=== PATIENT | male | born 1995 | race Caucasian/White ===

== ENCOUNTER 2024-02-25 20:47 | Emergency (ER) | payer OTHER, SELFPAY ==
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
[2024-02-25 20:51] VITALS: BP 154/98; PULSE 78; RESP 18; TEMP 36.3; O2SAT 100
--- NOTE | 2024-02-25 21:00 | DI.RAD_ITS ---
Exam(s) XR TIB/FIB LT EXAM: XR TIB/FIB LT CLINICAL HISTORY: Left tibia laceration. TECHNIQUE: 2D digital imaging was performed of the left tibia and fibula. Three images were obtained . AP and lateral views were obtained. COMPARISON: No exams were available for comparison FINDINGS: BONES: No acute fracture is present. No bony destructive lesion is seen. Visualized portion of knee a nd ankle joints are unremarkable. SOFT TISSUE: There is a laceration in the anterior medial soft tissues of the inferior lower leg. No radiopaque foreign body is identified. IMPRESSION: There is a laceration in the anterior medial soft tissues of the inferior lower leg. No radiopaque f oreign body is seen. No acute fracture or dislocation. DATA REPOSITORY: RADIATION DOSE DELIVERED:
[2024-02-25] MEDS: Lidocaine/Epinephri/Tetracaine Topical Gel 3 ML TP (21:05)
[2024-02-25] MEDS: ceFAZolin 2 GM/50 ML BAG IVPB (21:19)
[2024-02-25] MEDS: ACETAMINOPHEN 1,000 MG/100 ML BTL 400 MG IVPB (21:19)
[2024-02-25] MEDS: Normal Saline 500 ML IV (21:20)
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
--- OUTSIDE RECORDS SUMMARY | 2024-02-25 21:56 | XMS_ITS | Encounter Summary ---
Author Organization [facility] lin Address [address] [place] [address] Care Team Providers Care Inventory Control Assistant Name Role Phone No, Pcp REGISTERED SALES ASSISTANT Primary Care Provider Unavailabl e Reason for Visit * Reason Comments Poc Onsite Covid19 Testing Encounter Details Date Type Department Care Team (Late st Contact Info) Description 09/01/2021 3:45 PM EST Office Visit [facility] [address] [facility] [address] Covid - 19 Testing Site [address] [place] [address] So [facility] NP [address] [place] [address] Contact with and (suspected) exposure to covid-19 (Primary Dx); Encounter for observation for suspected exposure to other biological agents ruled out Social History Tobacco Use Types Packs/Day Years Used Date Smoking Tobacco: Never Assessed Sex and Gender Information Value Date Recorded Sex Assigned at Not on file Gender Identity Not on file Sexual Orientation Not on file documented as of this encounter Functional Status Functional Status Response Date of Assess ment Is the person deaf or does h e/she have serious difficulty hearing? Is this person blind or does he/she have serious difficulty seeing even when wearing glasses? Does this person have seriou s difficulty walking or climbing stairs? Does this person have difficulty dressing or bat po? Because of a physical, menta l, or emotional condition, does this person have difficulty doing errands alone such as visiting a doctor's office or shopping? Cognitive Status Response Date of Assessm ent Because of a physical, menta l, or emotional condition, does this person have serious difficulty concentrating, remembering, or making decisions? documented as of this encounter Patient Instructions * Patient Instructions* Nikole Schuler RN - 09/01/2021 3:45 PM EST Patient was reached and results were delivered. Negative Test results You were seen for COVID-19 Testing and have tested negative. If you test negative for COVID-19, you probably were not infected at the time your specimen was collected. However, that does not mean you will not get sick. It is possible that you were very early in your infection at the time of your specimen collection and that you could test positive later, or you could be exposed later and then develop illness. Even with a negative test, it is important to stay home if sick and follow Department of Health recommendations. Managing your symptoms During this viral illness, rest and hydration are important in your recovery. You can take anti-fever medication as directed per your healthcare provider and package instructions. Prevent the spread of illness Separate yourself from other people in your home As much as possible, you should stay in a specificroom and away from other people in your home. Also, you should use a separate bathroom, if available. Call ahead before visiting your doctor If you have a medical appointment, call the healthcare provider and tell them that you have or may have COVID-19. This will help the healthcare provider???s office take steps to keep other people from getting infected or exposed. Wear a facemask You should wear a facemask, if possible, when you are around other people (e.g., sharing a room or vehicle) and before you enter a healthcare provider???s office. If you are not able to wear a facemask (for example, because it causes trouble breathing), then people who live with youshould not be in the same room with you, or they should wear a facemask if they enter your room. Cover your coughs and sneezes Cover your mouth and nose with a tissue when you cough or sneeze. Throw used tissues in a lined trash can; immediately clean your hands as described below. Clean your hands often Wash your hands often with soap and water for at least 20 seconds. If soap and water are not available, clean your hands with an alcohol- based hand painter barrel that contains at least 60% alcohol, covering all surfaces of your hands and rubbing them together until they feel dry.Soap and water is preferred if hands are visibly dirty. Avoid touching your eyes, nose, and mouth with unwashed hands. Avoid sharing personal household items You should not share dishes, drinking glasses, cups, eating utensils, towels, or bedding with other people or pets in your home. After using these items, they should be washed thoroughly with soap and water and dried before use by others. Clean all ???high-touch?? surfaces every day High touch surfaces include counters, tabletops, doorknobs, bathroom fixtures, toilets, phones, keyboards, tablets, and bedside tables. Also, clean any surfaces that may have blood, stool, or body fluids on them. Use a household cleaning spray or wipe, according to the label instructions. Labels contain instructions for safe and effective use of the cleaning product including precautions you should take when applying the product, such as wearing gloves and making sure you have good ventilation during use of the product. Follow up with Primary Care Physician as scheduled. [facility] COVID19 Fact Sheet You are being given this Fact Sheet because your sample(s) are being tested for the virus that causes Coronavirus Disease 2019 (COVID-19). This Fact Sheet contains information to help you understand the risks and benefits of using this test for the diagnosis of COVID-19. If you have questions or would like to discuss the information provided after you read this Fact Sheet, please talk to your healthcare provider. For the most up to date information on COVID-19 please visit the CDC Coronavirus Disease 2019 (COVID-19) webpage: https://www.cdc.gov/coronavirus/2019-ncov/index.html IMPORTANT INFORMATION REGARDING COVID19 TEST RESULTS: ??? Please wait for next steps in the parking lot or designated wait area after you submitted your sample ??? Ensure your phone is on as the provider will be calling you with next steps as you wait in the designated wait area. ??? The [facility] provider will be able to perform other diagnostic tests (e.g., rapid flu or rapid strep) at the on-site [facility] for a symptomatic patient with a negative COVID-19 test result and can help answer questions about how to best manage symptoms and quarantine for a patient with a positive COVID- 19 result. Know about COVID-19 COVID-19 is caused by the SARS-CoV-2 virus. COVID- 19 can cause mild to severe respiratory illness,was first identified in [facility], and has now spread globally, including in the [place]. There is limited information available about the spectrum of illness associated with COVID-19 but itlikely spreads to others when a person shows signs or symptoms of being sick (e.g., cough, shortness of breath or difficult breathing, fever, chills, repeated shaking with chills, muscle pain, headache, sore throat, new loss of taste or smell, other less common symptoms have been reported, including gastrointestinal symptoms like nausea, vomiting, or diarrhea.) What are the known and potential risks and benefits of the test? Potential risks include: ??? Possible discomfort or other complications that can happen during sample collection. (I.e. bloody nose during specimen collection) ??? It is possible that this test can give a positive result that is wrong (a false positive result). ??? It is possible for this test to give a negative result that is incorrect (false negative). Potential benefits include: ??? The results, along with other information, can help your healthcare provider make informed recommendations about your care. ??? The results of this test may help limit the spread of COVID-19 to your family and others in your community. ??? The results of this test may help limit the spread of COVID-19 to your family and others in your community. Potential benefits include: ??? The results, along with other information, can help your healthcare provider make informed recommendations about your care. ??? The results of this test may help limit the spread of COVID-19 to your family and others in your community. What does it mean if I have a positive test result? If you have a positive test result, it is very likely that you have COVID-19. Therefore, it is alsolikely that you may be placed in isolation to avoid spreading the virus to others. There is a very small chance that this test can give a positive result that is wrong (a false positive result). Most cases can be cared for at home. Stay home and limit contact with others until: You have been fever-free for at least 24 hours without using medicine that reduces fever AND your symptoms have improved AND at least 10 days have passed since your symptoms first appeared. ??? Do not go to the hospital to seek care unless you have a medical emergency ??? Do not go to work. Notify your employer of your positive test result ??? Contact your primary care provider and inform them of your positive COVID19 testing result ??? Continue to monitor your symptoms at home and seek medical attention if symptoms worsen as described on the opposite side of this document. If you test positive for COVID-19 but never had and never develop symptoms, you may discontinue isolation and other precautions 10 days after the date of your first positive test for COVID-19. What does it mean if I have a negative test result? A negative test result does not completely rule out being infected with COVID- 19. There is a chancethat this test can give a false result that is wrong (a false negative result). If you test negative for COVID-19, this means the virus was not detected at the time your specimen was collected. It is still possible that you were very early in your infection at the time of your specimen collection and that you could test positive later. Also, you could be exposed later and still develop the illness. For all these reasons, it is important to follow CDC guidance at (https://www.cdc.gov/coronavirus/2019-ncov/qzhfhxk-jvbxdys-bqsi/prevent ion.html), including but not limited to frequent hand washing, social distancing, wearing a face covering, covering coughs and sneezes, monitoring symptoms, and cleaning and disinfectant of frequently touched surfaces -- even after a negative test result. Is there a possibility that the test results could be ???invalid?? ? In the instance that your specimen is invalid, you may have to submit a second specimen. If that also is an invalid result, you will likely need send-out lab testing. Testing invalid today does not mean you do have COVID-19 or don???t have COVID-19. There are some reasons as to why you may have tested invalid. For example, a recent bloody nose, testing device errors, or not enough of a specimen sample could give an invalid result. How should I monitor my symptoms? Note the day any new symptoms begin ??? Check your own temperature two times a day ??? Keep a daily record of fever, cough and additional respiratory symptoms ??? Seek further evaluation from a healthcare provider via telemedicine, or thru a scheduled in person visit if applicable and your symptoms get worse. ??? Call ahead before visiting your healthcare provider and tell them you have been tested for COVID-19. ??? Even if you don???t experience symptoms you might make others sick What should I do if symptoms get worse? Wash your hands often with soap and water for at least 20 seconds. Clean your hands with an alcohol-based hand painter barrel that contains at least 60% alcohol if soap and water are not available. ??? Avoid close contact with people who are sick ??? Avoid touching your eyes, nose and mouth with unwashed hands. ??? Clean all ???high-touch?? surfaces every day. High touch surfaces include counters, tabletops,doorknobs, bathroom fixtures, toilets, phones, keyboards, tablets, and beside tables. ??? Cover coughs and sneezes ??? If available, wear a face covering What should I do if symptoms get worse? Seek medical attention immediately if you develop any of the following emergency warning signs for COVID-19 or other medical emergencies: ??? Difficulty breathing ??? Bluish lips or face ??? Constant pain or pressure in your chest ??? Constant dizziness or lightheadedness ??? Acting confused ??? Difficulty waking up ??? Slurred speech (new or worsening) ??? New seizure or seizures that won???t stop This list is not all-inclusive. Please consult a healthcare provider for any other symptoms that are severe or concerning. What should I do to protect myself? Wash your hands often with soap and water for at least 20 seconds. Clean your hands with an alcohol-based hand painter barrel that contains at least 60% alcohol if soap and water are not available. ??? Avoid close contact with people who are sick ??? Avoid touching your eyes, nose and mouth with unwashed hands. ??? Clean all ???high-touch?? surfaces every day. High touch surfaces include counters, tabletops,doorknobs, bathroom fixtures, toilets, phones, keyboards, tablets, and beside tables. ??? Cover coughs and sneezes ??? If available, wear a face covering When will I receive my test results? [facility] allows you to view your test results, your medical records and more. You will receive a [facility] activation email at the conclusion of your COVID19 visit. Upon receipt, you will need to createa user name and password by inputting basic patient demographics including date of and a response to a security question. If you have any questions and/or concerns regarding the [employer] process, you may email [email or web address] Our Notice of Privacy Practices can be found here: [email or web address] If you have any questions, please contact us at . Where can I go for updates and more information? The most up-to-date information on is available at the CDC General webpage: https://www.cdc.gov/COVID19 In addition, please also contact your healthcare provider with any questions/concerns. CDC Information Updated: December 13, 2019 documented in this encounter Progress Notes * Nikole Schuler RN - 09/01/2021 3:45 PM EST [facility] Department of Health notified of results per regulations documented in this encounter Plan of Treatment Not on file documented as of this encounter Procedures Procedure Name Priority Date/Time Associated Diagnosis Comments LUMIRADX SARS-COV-2 RAPID RESULT ANTIGEN TEST Routine 09/01/2021 3:42 PM EST Contact with and (suspected) exposure to covid-19 documented in this encounter Results * LumiraDX SARS-COV-2 Rapid Result Antigen Test (09/01/2021 3:42 PM EST) LumiraDX SARS-COV-2 Rapid Result Antigen Test Negative Negative, Invalid invino [id number] INTERNAL CONTROLS VALID Yes--Test working appropriately invino [id number] Expiration Date 11/04/2021 invino [id number] Lot Number [id number] [facility] [id number] Test Brand Name_Covid-19 Lumiradx Sars-Cov-2 AG Test [facility] [id number] Other 09/01/2021 3:42 PM EST So [facility] REGISTERED SALES ASSISTANT POINT OF CARE [facility] ORDERABLES [facility] [id number] [address] [place] [address], documented in this encounter Visit Diagnoses Diagnosis Contact with and (suspected) exposure to covid-19- Primary Encounter for observation for suspected exposure to other biological agents ruled out documented in this encounter Care Teams Inventory Control Assistant Relationship Specialty Start Date End Date No, Pcp, REGISTERED SALES ASSISTANT N/A Do not use PCP - General Family Medicine 08/06/20 documented as of this encounter
--- OUTSIDE RECORDS SUMMARY | 2024-02-25 21:56 | XMS_ITS | Referral Summary ---
Author Organization [facility] Address [address] [place] [address] Care Team Providers Care [employer] Repairer Name Role Phone Steven Fernandez MD Primary Care Provider [phone]- [phone] Allergies Active Allergy Reactions Criticality Noted Date Comments Penicillins 01/05/2015 Social History Tobacco Use Types Packs/Day Years Used Date Smoking Tobacco: Never Assessed Sex and Gender Information Value Date Recorded Sex Assigned at Not on file Gender Identity Not on file Sexual Orientation Not on file Last Filed Vital Signs Vital Sign Reading Time Taken Comments Blood Pressure 142/83 01/05/2015 1:46 AM EDT Pulse 98 01/05/2015 1:46 AM EDT Temperature 36.3 ??C (97.3 ??F) 01/05/2015 1:46 AM ED T Respiratory Rate 22 01/05/2015 1:46 AM EDT Oxygen Saturation 98% 01/05/2015 1:46 AM EDT Inhaled Oxygen Concentration 98% 01/05/2015 1 :46 AM EDT Weight 70.3 kg (155 lb) 01/05/2015 1:46 AM EDT Height 180.3 cm (5' 11) 01/05/2015 1:46 AM EDT Body Mass Index 21.62 01/05/2015 1:46 AM EDT Functional Status Functional Status Response Date of Assessment Stat us Are you deaf or do you have serious difficulty hearing? No 01/05/2015 Active Are you blind or do you have serious difficulty seeing, even when wearing glasses? No 01/05/2015 Activ e Do you have serious difficul ty walking or climbing stairs? (5 years old or older) No 01/05/2015 Active Do you have difficulty dress ing or bathing? (5 years old or older) No 01/05/2015 Active Because of a physical, menta l, or emotional condition, do you have difficulty doing errands alone such as visiting a doctor's office or shopping? (15 years old or older) No 01/05/2015 Active Cognitive Status Response Date of Assessment Statu s Because of a physical, menta l, or emotional condition, do you have serious difficulty concentrating, remembering, or making decisions? (5 years old or older) No 01/05/2015 Active Plan of Treatment Not on file Insurance Payer Benefit Plan / Group Subscriber ID Effective Dates Phone Address Type AETNA AETNA O [id number] 2010-Present [address] [place] [address] HMO Care Teams [employer] Se[employer] Relationship Specialty Start Date End Date Steven Fernandez MD [address] [place] [id number] PCP - General 01/05/15
--- OUTSIDE RECORDS SUMMARY | 2024-02-25 21:56 | XMS_ITS | Encounter Summary ---
Author Organization [facility] Address [address] [place] [address] Care Team Providers Care Office Support Associate Name Role Phone Steven Fernandez MD Primary Care Provider [phone] Reason for Visit * Reason Comments Chin Laceration Encounter Details Date Type Department Care Team (Late st Contact Info) Description 01/05/2015 1:54 AM EDT - 01/05/2015 2:45 AM EDT Emergency [facility] Emergency Department [address] [place] [id number] Laine Majano MD [address] [place] [id number] Discharge Disposition: Home or Self Care Social History Tobacco Use Types Packs/Day Years Used Date Smoking Tobacco: Never Assessed Sex and Gender Information Value Date Recorded Sex Assigned at Not on file Gender Identity Not on file Sexual Orientation Not on file documented as of this encounter Last Filed Vital Signs Vital Sign Reading [...] Mass Index 21.62 01/05/2015 1:46 AM EDT documented in this encounter Functional Status Functional Status Response [...] years old or older) No 01/05/2015 Active documented as of this encounter Discharge Instructions * Discharge Instructions* Christina Cohen MD - 01/05/2015 2:30 AM EDT Images from the original note were not included. Cuts on the Face Closed With Stitches: After Your Visit Your Care Instructions A cut on your face can be on your chin, cheek, nose, forehead, eyelid, lip, or ear. The doctor used stitches to close the cut. Using stitches helps the cut heal and reduces scarring. The doctor may also have called in a specialist, such as a plastic surgeon, to close the cut. If the cut went deep and through the skin, the doctor may have put in two layers of stitches. The deeper layer brings the deep part of the cut together. These stitches will dissolve and don't need regino removed. The stitches in the upper layer are the ones you see on the cut. You will probably have a bandage. You will need to have the stitches removed, usually in 3 to 5 days. The doctor has checked you carefully, but problems can develop later. If you notice any problems ornew symptoms, get medical treatment right away. Follow-up care is a serrano part of your treatment and safety. Be sure to make and go to all appointments, and call your doctor if you are having problems. It's also a good idea to know your test resultsand keep a list of the medicines you take. How can you care for yourself at home? ?? Keep the cut dry for the first 24 to 48 hours. After this, you can shower if your doctor okays it. Pat the cut dry. ?? Don't soak the cut, such as in a bathtub. Your doctor will tell you when it's safe to get the cut wet. ?? After the first 24 to 48 hours, clean the cut with soap and water 2 times a day unless your doctor gives you different instructions. ?? Don't use hydrogen peroxide or alcohol, which can slow healing. ?? You may cover the cut with a thin layer of antibiotic ointment, such as bacitracin, and a nonstick bandage. ?? Put on a new bandage after cleaning the cut or if the bandage gets wet or dirty. ?? Put ice or a cold pack on the area for 10 to 20 minutes at a time. Put a thin cloth between the ice and your skin. ?? Avoid any activity that could cause your cut to reopen. ?? Do not remove the stitches on your own. Your doctor will tell you when to come back to have the stitches removed. ?? Take pain medicines exactly as directed. ?? If the doctor gave you a prescription medicine for pain, take it as prescribed. ?? If you are not taking a prescription pain medicine, ask your doctor if you can take an [id number]-[id number] medicine. When should you call for help? Call your doctor now or seek immediate medical care if: ?? You have new pain, or your pain gets worse. ?? The skin near the cut is cold or pale or changes color. ?? You have tingling, weakness, or numbness near the cut. ?? The cut starts to bleed, and blood soaks through the bandage. Oozing small amounts of blood is normal. ?? You have symptoms of infection, such as: ?? Increased pain, swelling, warmth, or redness around the cut. ?? Red streaks leading from the cut. ?? Pus draining from the cut. ?? A fever. Watch closely for changes in your health, and be sure to contact your doctor if: ?? You do not get better as expected. Where can you learn more? Go to the ???Search [employer] Library?? box on [employer] https://[employer].org and enter Z635in the search box to learn more about Cuts on the Face Closed With Stitches: After Your Visit. Not on [employer]? Contact your Provider to receive your log in information. ?? [id number] [employer], [employer]. Care instructions adapted under license by [employer]. Thiscare instruction is for use with your licensed healthcare professional AND IS NOT A SUBSTITUTE FOR PROFESSIONAL MEDICAL ADVICE. If you have questions about a medical condition or this instruction, always ask your healthcare professional. [employer] disclaims any warranty or liability for your use of this information. Content Version: 10.0.910855; Last Revised: June 01, 2012 documented in this encounter ED Notes * Lyndsay Long RN - 01/05/2015 2:45 AM EDT Pt meets discharge criteria. Pt ambulatory with friend to waiting room and taxi called for ride home. Pt with no complaints or questions. * Laine Majano MD - 01/05/2015 1:56 AM EDTAssociated Order(s): LACERATION REPAIR History Chief Complaint Patient presents with ??? Chin Laceration Chief Complaint: Chin laceration I saw this patient with the resident physician Dr. Cohen. I have seen and examined the patient myself and am responsible for the care plan. HPI This is a 20 y.o. male who presents with a chin laceration. Patient was celebrating birthday, +[place]OH. States that he fell down 2 stairs and landed on his chin. Denies LOC, remembers all of the events clearly. Patient states that he was bleeding from the area, came into [facility] for further management. Patient complains of minimal discomfort in the jaw. He denies headache or change in vision. No chest pain, SOB, N/V, abdominal pain. No injury to the extremities. No numbness or weakness in the arms or legs. Patient is otherwise healthy. Not taking any medications. Patient denies significant complaints of pain History reviewed. No pertinent past medical history. History reviewed. No pertinent past surgical history. No family history on file. History Substance Use Topics ??? Smoking status: None ??? Smokeless tobacco: None ??? Alcohol Use: None Review of Systems Constitutional: Negative for fever, chills, diaphoresis and fatigue. HENT: Negative for congestion. Eyes: Negative for pain and visual disturbance. Respiratory: Negative for cough, shortness of breath and wheezing. Cardiovascular: Negative for chest pain and palpitations. Gastrointestinal: Negative for nausea, vomiting, abdominal pain, diarrhea, constipation and abdominal distention. Genitourinary: Negative for dysuria and flank pain. Musculoskeletal: Negative for back pain, neck pain and neck stiffness. Skin: Positive for wound. Negative for pallor and rash. Neurological: Negative for dizziness, syncope, weakness, light-headedness, numbness and headaches. Psychiatric/Behavioral: Negative for confusion. Physical Exam BP 142/83 Pulse 98 Temp 36.3 ??C (97.3 ??F) (Tympanic) Resp 22 Ht 1.803 m (5' 11) Wt 70.308 kg (155 lb) BMI 21.63 kg/m2 SpO2 98% Physical Exam Constitutional: He is oriented to person, place, and time. No distress. HENT: Head: Normocephalic and atraumatic. Mouth/Throat: Oropharynx is clear and moist. No oropharyngeal exudate. Eyes: EOM are normal. Pupils are equal, round, and reactive to light. Right eye exhibits no discharge. Left eye exhibits no discharge. Neck: Normal range of motion. Neck supple. Cardiovascular: Normal rate, regular rhythm, normal heart sounds and intact distal pulses. No murmur heard. Pulmonary/Chest: Effort normal and breath sounds normal. No respiratory distress. He has no wheezes. Abdominal: Soft. Bowel sounds are normal. He exhibits no distension. There is no tenderness. Musculoskeletal: Normal range of motion. He exhibits no tenderness. The patient had no midline cervical, thoracic, lumbar tenderness to palpation. Neurological: He is alert and oriented to person, place, and time. Skin: Skin is warm and dry. He is not diaphoretic. 2 cm laceration to chin Psychiatric: He has a normal mood and affect. Lac Repair Date/Time: 01/05/2015 2:36 AM Performed by: CHRISTINA COHEN Authorized by: LAINE MAJANO Consent: Verbal consent obtained. Risks and benefits: risks, benefits and alternatives were discussed Consent given by: patient Patient understanding: patient states understanding of the procedure being performed Patient consent: the patient's understanding of the procedure matches consent given Procedure consent: procedure consent matches procedure scheduled Patient identity confirmed: verbally with patient Time out: Immediately prior to procedure a time out was called to verify the correct patient, procedure, equipment, high school learning support teacher and site/side marked as required. Body area: head/neck Location details: chin Laceration length: 2 cm Tendon involvement: none Nerve involvement: none Vascular damage: no Anesthesia: local infiltration Local anesthetic: lidocaine 1% without epinephrine Anesthetic total: 4 ml Patient sedated: no Preparation: Patient was prepped and draped in the usual sterile fashion. Irrigation solution: saline Irrigation method: syringe Amount of cleaning: standard Debridement: none Degree of undermining: none Skin closure: 5-0 nylon Number of sutures: 4 Technique: simple Approximation: close Approximation difficulty: simple Dressinx4 sterile gauze Patient tolerance: Patient tolerated the procedure well with no immediate complications. Procedures completed include: I supervised the resident in the serrano portions of the laceration repair. Pertinent diagnostic study results include: EKG: none Labs: none Diagnostic Imaging: none MDM (ED Course and Disposition) MDM This is a 20 y.o. male who presents with laceration to chin. Patient will require this to be sutured- performed as above. Patient does not have any features on exam concerning for mandibular fracture. No neurologic deficits or headache concerning for acute ICH. Patient will be discharged home with i nsructions to have the sutures removed in 7 days. He should also return if he has increased pain orchange in symptoms. Christina Cohen MD 8:21 AM Critical Care Time: None Current Condition: Stable I performed a history and physical examination of Stanislaw Celeste and discussed his management with resident provider and I agree with the history, physical, assessment, and plan of care, and have edited and completed the above note. This patient has been evaluated for cervical spine injury. Based on the NEXUS C- spine rule, they donot require imaging at this time. The patient has no posterior midline cervical tenderness, normal level of alertness, no evidence of intoxication, no abnormal neurologic findings and no significant painful distracting injuries. I have discussed this with the patient and they are aware of the plan.No other trauma besides chin lac on exam. Laine Majano MD 9:17 PM Laine Majano MD [id number] * Ciara Horvath RN - 01/05/2015 1:45 AM EDT Pt. Reports falling on floor and hitting chin, denies neck pain. Denies loc. +laceration to chin. Bleeding controled. +etoh. Pt. Celebrating Birthday. documented in this encounter Miscellaneous Notes * Miscellaneous - Laine Majano MD - 01/05/2015 5:48 PM EDT documented in this encounter Plan of Treatment Not on file documented as of this encounter Procedures Procedure Name Priority Date/Time Associated Diagnosis Comments LACERATION REPAIR Routine 01/05/2015 9:1 9 PM EDT documented in this encounter Results * LACERATION REPAIR (01/05/2015 9:19 PM EDT) Narrative .MANUAL ENTRY (EXTERNAL LAB) - 01/05/2015 9:19 PM EDT Laine Majano MD ? 01/05/2015 ??9:19 PM History Chief Complaint Patient presents with ? ? Chin Laceration Chief Complaint: Chin laceration I saw this patient with the resident physician Dr. Cohen. I have seen and examined the patient myself and am responsible for the care plan. HPI This is a 20 y.o. male who presents with a chin laceration. Patient was celebrating birthday, +[place]. States that he fell down 2 stairs and landed on his chin. Denies LOC, remembers all of the events clearly. Patient states that he was bleeding from the area, came into [facility] for further management. Patient complains of minimal discomfort in the jaw. He denies headache or change in vision. No chest pain, SOB, N/V, abdominal pain. No injury to the extremities. No numbness or weakness in the arms or legs. Patient is otherwise healthy. Not taking any medications. Patient denies significant complaints of pain History reviewed. No pertinent past medical history. History reviewed. No pertinent past surgical history. No family history on file. History Substance Use Topics ? ? Smoking status: None ? ? Smokeless tobacco: None ? ? Alcohol Use: None Review of Systems Constitutional: Negative for fever, chills, diaphoresis and fatigue. HENT: Negative for congestion. ?? Eyes: Negative for pain and visual disturbance. Respiratory: Negative for cough, shortness of breath and wheezing. ?? Cardiovascular: Negative for chest pain and palpitations. Gastrointestinal: Negative for nausea, vomiting, abdominal pain, diarrhea, constipation and abdominal distention. Genitourinary: Negative for dysuria and flank pain. Musculoskeletal: Negative for back pain, neck pain and neck stiffness. Skin: Positive for wound. Negative for pallor and rash. Neurological: Negative for dizziness, syncope, weakness, light-headedness, numbness and headaches. Psychiatric/Behavioral: Negative for confusion. ?? Physical Exam BP 142/83 Pulse 98 Temp 36.3 ??C (97.3 ??F) (Tympanic) Resp 22 Ht 1.803 m (5' 11) Wt 70.308 kg (155 lb) BMI 21.63 kg/m2 SpO2 98% Physical Exam Constitutional: He is oriented to person, place, and time. No distress. HENT: Head: Normocephalic and atraumatic. Mouth/Throat: Oropharynx is clear and moist. No oropharyngeal exudate. Eyes: EOM are normal. Pupils are equal, round, and reactive to light. Right eye exhibits no discharge. Left eye exhibits no discharge. Neck: Normal range of motion. Neck supple. Cardiovascular: Normal rate, regular rhythm, normal heart sounds and intact distal pulses. ?? No murmur heard. Pulmonary/Chest: Effort normal and breath sounds normal. No respiratory distress. He has no wheezes. Abdominal: Soft. Bowel sounds are normal. He exhibits no distension. There is no tenderness. Musculoskeletal: Normal range of motion. He exhibits no tenderness. ? The patient had no midline cervical, thoracic, lumbar tenderness to palpation. Neurological: He is alert and oriented to person, place, and time. Skin: Skin is warm and dry. He is not diaphoretic. ? 2 cm laceration to chin Psychiatric: He has a normal mood and affect. ?? Lac Repair Date/Time: 01/05/2015 2:36 AM Performed by: CHRISTINA COHEN Authorized by: LAINE MAJANO Consent: Verbal consent obtained. Risks and benefits: risks, benefits and alternatives were discussed Consent given by: patient Patient understanding: patient states understanding of the procedure being performed Patient consent: the patient's understanding of the procedure matches consent given Procedure consent: procedure consent matches procedure scheduled Patient identity confirmed: verbally with patient Time out: Immediately prior to procedure a time out was called to verify the correct patient, procedure, equipment, high school learning support teacher and site/side marked as required. Body area: head/neck Location details: chin Laceration length: 2 cm Tendon involvement: none Nerve involvement: none Vascular damage: no Anesthesia: local infiltration Local anesthetic: lidocaine 1% without epinephrine Anesthetic total: 4 ml Patient sedated: no Preparation: Patient was prepped and draped in the usual sterile fashion. Irrigation solution: saline Irrigation method: syringe Amount of cleaning: standard Debridement: none Degree of undermining: none Skin closure: 5-0 nylon Number of sutures: 4 Technique: simple Approximation: close Approximation difficulty: simple Dressinx4 sterile gauze Patient tolerance: Patient tolerated the procedure well with no immediate complications. Procedures completed include: I supervised the resident in the serrano portions of the laceration repair. Pertinent diagnostic study results include: EKG: none Labs: none Diagnostic Imaging: none MDM (ED Course and Disposition) MDM This is a 20 y.o. male who presents with laceration to chin. Patient will require this to be sutured- performed as above. Patient does not have any features on exam concerning for mandibular fracture. No neurologic deficits or headache concerning for acute ICH. Patient will be discharged home with insructions to have the sutures removed in 7 days. He should also return if he has increased pain or change in symptoms. Christina Cohen MD 8:21 AM Critical Care Time: None Current Condition: Stable I performed a history and physical examination of Stanislaw Celeste and discussed his management with resident provider and I agree with the history, physical, assessment, and plan of care, and have edited and completed the above note. This patient has been evaluated for cervical spine injury. ??Based on the NEXUS C-spine rule, they do not require imaging at this time. ??The patient has no posterior midline cervical tenderness, normal level of alertness, no evidence of intoxication, no abnormal neurologic findings and no significant painful distracting injuries. I have discussed this with the patient and they are aware of the plan. ??No other trauma besides chin lac on exam. Laine Majano MD 9:17 PM Procedure Note Laine Majano MD - 01/05/2015 1:56 AM EDT History Chief Complaint Patient presents with ? ? Chin Laceration Chief Complaint: Chin laceration I saw this patient with the resident physician Dr. Cohen. I have seenand examined the patient myself and am responsible for the care plan. HPI This is a 20 y.o. male who presents with a chin laceration. Patient wascelebrating birthday, +[place]. States that he fell down 2 stairs and landedon his chin. Denies LOC, remembers all of the events clearly. Patientstates that he was bleeding from the area, came into [facility] further[facility]. Patient complains of minimal discomfort in the jaw. He denies headache orchange in vision. No chest pain, SOB, N/V, abdominal pain. No injury tothe extremities. No numbness or weakness in the arms or legs. Patient is otherwise healthy. Not taking any medications. Patient denies significant complaints of pain History reviewed. No pertinent past medical history. History reviewed. No pertinent past surgical history. No family history on file. History Substance Use Topics ? ? Smoking status: None ? ? Smokeless tobacco: None ? ? Alcohol Use: None Review of Systems Constitutional: Negative for fever, chills, diaphoresis and fatigue. HENT: Negative for congestion. Eyes: Negative for pain and visual disturbance. Respiratory: Negative for cough, shortness of breath and wheezing. Cardiovascular: Negative for chest pain and palpitations. Gastrointestinal: Negative for nausea, vomiting, abdominal pain, diarrhea,constipation and abdominal distention. Genitourinary: Negative for dysuria and flank pain. Musculoskeletal: Negative for back pain, neck pain and neck stiffness. Skin: Positive for wound. Negative for pallor and rash. Neurological: Negative for dizziness, syncope, weakness, light- headedness,numbness and headaches. Psychiatric/Behavioral: Negative for confusion. Physical Exam BP 142/83 Pulse 98 Temp 36.3 ??C (97.3 ??F) (Tympanic) Resp 22 Ht1.803 m (5' 11) Wt 70.308 kg (155 lb) BMI 21.63 kg/m2 SpO2 98% Physical Exam Constitutional: He is oriented to person, place, and time. No distress. HENT: Head: Normocephalic and atraumatic. Mouth/Throat: Oropharynx is clear and moist. No oropharyngeal exudate. Eyes: EOM are normal. Pupils are equal, round, and reactive to light.Right eye exhibits no discharge. Left eye exhibits no discharge. Neck: Normal range of motion. Neck supple. Cardiovascular: Normal rate, regular rhythm, normal heart sounds andintact distal pulses. No murmur heard. Pulmonary/Chest: Effort normal and breath sounds normal. No respiratorydistress. He has no wheezes. Abdominal: Soft. Bowel sounds are normal. He exhibits no distension. Thereis no tenderness. Musculoskeletal: Normal range of motion. He exhibits no tenderness. The patient had no midline cervical, thoracic, lumbar tenderness topalpation. Neurological: He is alert and oriented to person, place, and time. Skin: Skin is warm and dry. He is not diaphoretic. 2 cm laceration to chin Psychiatric: He has a normal mood and affect. Lac Repair Date/Time: 01/05/2015 2:36 AM Performed by: CHRISTINA COHEN Authorized by: LAINE MAJANO Consent: Verbal consent obtained. Risks and benefits: risks, benefits and alternatives were discussed Consent given by: patient Patient understanding: patient states understanding of the procedure beingperformed Patient consent: the patient's understanding of the procedure matchesconsent given Procedure consent: procedure consent matches procedure scheduled Patient identity confirmed: verbally with patient Time out: Immediately prior to procedure a time out was called to verifythe correct patient, procedure, equipment, high school learning support teacher and site/sidemarked as required. Body area: head/neck Location details: chin Laceration length: 2 cm Tendon involvement: none Nerve involvement: none Vascular damage: no Anesthesia: local infiltration Local anesthetic: lidocaine 1% without epinephrine Anesthetic total: 4 ml Patient sedated: no Preparation: Patient was prepped and draped in the usual sterilefashion. Irrigation solution: saline Irrigation method: syringe Amount of cleaning: standard Debridement: none Degree of undermining: none Skin closure: 5-0 nylon Number of sutures: 4 Technique: simple Approximation: close Approximation difficulty: simple Dressinx4 sterile gauze Patient tolerance: Patient tolerated the procedure well with no immediatecomplications. Procedures completed include: I supervised the resident in the keyportions of the laceration repair. Pertinent diagnostic study results include: EKG: none Labs: none Diagnostic Imaging: none MDM (ED Course and Disposition) MDM This is a 20 y.o. male who presents with laceration to chin. Patient willrequire this to be sutured- performed as above. Patient does not have anyfeatures on exam concerning for mandibular fracture. No neurologicdeficits or headache concerning for acute ICH. Patient will be dischargedhome with insructions to have the sutures removed in 7 days. He shouldalso return if he has increased pain or change in symptoms. Christina Cohen MD 8:21 AM Critical Care Time: None Current Condition: Stable I performed a history and physical examination of Stanislaw Celeste anddiscussed his management with resident provider and I agree with thehistory, physical, assessment, and plan of care, and have edited andcompleted the above note. This patient has been evaluated for cervical spine injury. Based on theNEXUS C- spine rule, they do not require imaging at this time. The patienthas no posterior midline cervical tenderness, normal level of alertness,no evidence of intoxication, no abnormal neurologic findings and nosignificant painful distracting injuries. I have discussed this with thepatient and they are aware of the plan. No other trauma besides chin lacon exam. Laine Majano MD 9:17 PM Laine Majano MD 01/05/15 1239 Laine Majano MD PROCEDURE/MINOR SURG ICAL ORDERABLES .MANUAL ENTRY (EXTERNAL LAB) Please Refer to Scanned Lab Report documented in this encounter Visit Diagnoses Diagnosis Chin laceration, initial encounter- Primary documented in this encounter Care Teams Office Support Associate Relationship Specialty Start Date End Date Steven Fernandez MD [address] [place] [id number] PCP - General 01/05/15 documented as of this encounter
--- OUTSIDE RECORDS SUMMARY | 2024-02-25 21:56 | XMS_ITS | Encounter Summary ---
Author Organization [facility] Address [address] [facility] [address] [place] [address] Care Team Providers Care Mold Puller Name Role Phone No Pcp, Per Patient Primary Care Provider Fercho bills Reason for Visit * Reason Comments Laceration States left thumb wa s cut while getting a new knife blade out of the packaging this morning about an hour ago Encounter Details Date Type Department Care Team (Latest Contact Info) Description 03/29/2023 10:04 AM EDT - 03/29/2023 12:27 PM EDT Hospital Encounter [facility] [address] [place] [address] Nancy Mccord NP [address] [place] [address] Laceration of left thumb without foreign body without damage to nail, initial encounter (Primary Dx) Discharge Disposition: Home or self care Social History Tobacco Use Types Packs/Day Years Used Date Smoking Tobacco: Never Smokeless Tobacco: Never Tobacco Cessation:Counseling Given: Not Answered Sex and Gender Information Value Date Recorded Sex Assigned at Male 09/29/2021 8:21 PM EST Gender Identity Not on file Sexual Orientation Not on file Job Start Date Occupation Industry Not on file Not on file Not on file documented as of this encounter Last Filed Vital Signs Vital Sign Reading Time Taken Comments Blood Pressure 130/64 03/29/2023 12:15 PM EDT Pulse 59 03/29/2023 10:21 AM EDT Temperature 36.8 ??C (98.2 ??F) 03/29/2023 10:21 AM E DT Respiratory Rate 18 03/29/2023 10:21 AM EDT Oxygen Saturation 100% 03/29/2023 10:21 AM EDT Inhaled Oxygen Concentration - - Weight 86.2 kg (190 lb) 03/29/2023 10:21 AM EDT Height 180.3 cm (5' 11) 03/29/2023 10:21 AM EDT Body Mass Index 26.5 03/29/2023 10:21 AM EDT documented in this encounter Discharge Instructions * Discharge Instructions* Nancy Mccord NP - 03/29/2023 12:07 PM EDT You were evaluated in urgent care after sustaining a laceration to your left thumb. 9 sutures were placed. Keep covered for 24 hours after 24 hours you may remove and keep open to air when at home keep covered when you go to work. Sutures will need to be removed in 7 to 10 days either by your PCP or returning to urgent care. Monitor for signs and symptoms of infection such as increased swelling, redness, abnormal drainage, fever and/or chills and if present return to urgent care or ER. documented in this encounter ED Notes * Nancy Mccord NP - 03/29/2023 9:23 AM EDTAssociated Order(s): Laceration Repair Post-Procedure Diagnose(s): Laceration of left thumb without foreign body without damage to nail, initial encounter Images from the original note were not included. History Chief Complaint Patient presents with ??? Laceration States left thumb was cut while getting a new knife blade out of the packaging this morning about an hour ago See MDM Past Medical History: Diagnosis Date ??? Known health problems: none Past Surgical History: Procedure Laterality Date ??? ELBOW SURGERY ??? HERNIA REPAIR No family history on file. Social History Tobacco Use ??? Smoking status: Never ??? Smokeless tobacco: Never Substance Use Topics ??? Alcohol use: Not on file ??? Drug use: Not on file Review of Systems Constitutional: Negative. Respiratory: Negative. Cardiovascular: Negative. Skin: Positive for wound (laceration to left thumb). Physical Exam Vitals: 03/29/23 1021 03/29/23 1215 BP: (!) 155/101 130/64 BP Location: Right arm Right arm Patient Position: Sitting Sitting Pulse: 59 Resp: 18 Temp: 36.8 ??C (98.2 ??F) TempSrc: Oral SpO2: 100% Weight: 86.2 kg Height: 1.803 m Physical Exam Vitals and nursing note reviewed. Constitutional: General: He is not in acute distress. Appearance: Normal appearance. He is not ill-appearing, toxic-appearing or diaphoretic. HENT: Head: Normocephalic. Cardiovascular: Rate and Rhythm: Normal rate and regular rhythm. Pulses: Normal pulses. Heart sounds: Normal heart sounds. No murmur heard. No friction rub. No gallop. Pulmonary: Effort: Pulmonary effort is normal. No respiratory distress. Breath sounds: Normal breath sounds. No stridor. No wheezing, rhonchi or rales. Chest: Chest wall: No tenderness. Musculoskeletal: Right hand: Normal. Left hand: Laceration (Approximately 3.5 cm linear laceration to the distal anterior aspect of the left thumb) present. No swelling, deformity, tenderness or bony tenderness. Normal range of motion. Normal strength. Normal sensation. There is no disruption of two-point discrimination. Normal capillary refill. Normal pulse. Hands: Skin: General: Skin is warm and dry. Capillary Refill: Capillary refill takes less than 2 seconds. Neurological: General: No focal deficit present. Mental Status: He is alert and oriented to person, place, and time. Psychiatric: Mood and Affect: Mood normal. Behavior: Behavior normal. No orders to display Labs Reviewed - No data to display Procedures Laceration Repair Performed by: Nancy Mccord NP Authorized by: Nancy Mccord NP Consent: Consent obtained: Verbal Consent given by: Patient Risks, benefits, and alternatives were discussed: yes Risks discussed: Infection, pain, poor wound healing, poor cosmetic result, need for additional repair, retained foreign body, vascular damage and nerve damage Alternatives discussed: No treatment Adams protocol: Procedure explained and questions answered to patient or proxy's satisfaction: yes Patient identity confirmed: Verbally with patient, arm band and hospital- assigned identification number Anesthesia: Anesthesia method: Local infiltration Local anesthetic: Lidocaine 1% w/o epi Laceration details: Location: Finger Finger location: L thumb Length (cm): 3.5 Depth (mm): 5 Pre-procedure details: Preparation: Patient was prepped and draped in usual sterile fashion Exploration: Limited defect created (wound extended): yes Hemostasis achieved with: Direct pressure and tourniquet Wound exploration: wound explored through full range of motion and entire depth of wound visualized Wound extent: areolar tissue violated Wound extent: no foreign bodies/material noted, no muscle damage noted, no nerve damage noted and no tendon damage noted Contaminated: no Treatment: Area cleansed with: Povidone-iodine, chlorhexidine and Shur-Clens Amount of cleaning: Standard Irrigation solution: Sterile saline Irrigation volume: 150 Irrigation method: Pressure wash and syringe Visualized foreign bodies/material removed: no Debridement: None Undermining: None Skin repair: Repair method: Sutures Suture size: 4-0 Suture material: Nylon Suture technique: Simple interrupted Number of sutures: 9 Approximation: Approximation: Close Repair type: Repair type: Simple Post-procedure details: Dressing: Non-adherent dressing and antibiotic ointment Procedure completion: Tolerated well, no immediate complications UC Course Diagnoses as of 03/29/232115 Laceration of left thumb without foreign body without damage to nail, initial encounter Medical Decision Making Stanislaw Celeste is a 28 y.o. who presents to urgent care with concern for to his left thumb occurred today while at work. He reports that he was changing over a blade for utility knife and it slipped cutting the top of his left thumb. He reports that he immediately applied pressure and came here to urgent care for evaluation. Denies numbness and tingling of the left thumb. He is able to move i t with no difficulty. Patient reports that he is up-to-date with his tetanus. Injury occurred at work. Physical exam revealed approximately 3.5 cm laceration to distal aspect of the anterior left thumb.Laceration was irrigated with normal saline and cleaned thoroughly. 9 sutures were placed. Bacitracin and a bandage applied. He was instructed to keep covered for 24 hours and after 24 hours may remove and keep open to air when at home. We discussed that when he is at work he will need to keep covered. Do not submerge hand underwater. He was instructed that the sutures will need to be removed in 7 to 10 days either by his PCP or returning to urgent care. We discussed signs and symptoms of infection and when to return to urgent care or ER. Patient will need to follow-up with occupational medicine for follow-up if symptoms do not improve. Verbalized understanding and is comfortable and in agreement with the plan. Laceration of left thumb without foreign body without damage to nail, initial encounter: acute illness or injury Risk Prescription drug management. Discharge Meds ED Prescriptions None Home Meds Prior to Admission medications Not on File Total amount of time spent on day of service doing chart review, history and physical exam,?? order/ review results of testing ordered (if any), patient counseling, documentation: 40 minutes. Patient encounter note may have been created using voice recognition software and in real time during the office visit. Please excuse any typographical errors that may not have been edited out. Nancy Mccord NP 03/29/232115 documented in this encounter Miscellaneous Notes * Patient Pass - Nancy Mccord NP - 03/29/2023 12:09 PM EDT Patient Education Table of Contents Laceration Care, Adult To view videos and all your education online visit, [email or web address] or scan this QR code with your smartphone. Access to this content will in one year. Laceration Care, Adult A laceration is a cut that may go through all layers of the skin. The cut may also go into the tissue that is right under the skin. Some cuts heal on their own. Other cuts need to be closed with stitches (sutures), stella, skin adhesive strips, or skin glue. Taking care of your cut lowers your risk of infection, helps your injury heal better, and may prevent scarring. General tips Keep your wound clean and dry. Do not scratch or pick at your wound. Wash your hands with soap and water for at least 20 seconds before and after touching your wound orchanging your bandage (dressing). If you cannot use soap and water, use hand marketing regional consultant. Do not usedisinfectants or antiseptics, such as rubbing alcohol, to clean your wound unless told byyour doctor. If you were given a bandage, change it at least once a day, or as told by your doctor. You should also change it if it gets wet or dirty. How to take care of your cut If your doctor used stitches or stella: Keep the wound fully dry for the first 24 hours, or as told by your doctor. After that, you may take a shower or a bath. Do not soak the wound in water until after the stitches or stella have been taken out. Clean the wound once a day, or as told by your doctor. To do this: Wash the wound with soap and water. Rinse the wound with water to remove all soap. Pat the wound dry with a clean towel. Do not rub the wound. After you clean the wound, put a thin layer of antibiotic ointment, another ointment, or a nonstickbandage on it as told by your doctor. This will help to: Prevent infection. Keep the bandage from sticking to the wound. Have your stitches or stella taken out as told by your doctor. If your doctor used skin adhesive strips: Do not get the skin adhesive strips wet. You can take a shower or a bath, but keep the wound dry. If the wound gets wet, pat it dry with a clean towel. Do not rub the wound. Skin adhesive strips fall off on their own. You can trim the strips as the wound heals. Do not takeoff any strips that are still stuck to the wound unless told by your doctor. The strips will fall off after a while. If your doctor used skin glue: You may take a shower or a bath, but try to keep the wound dry. Do not soak the wound in water. After you take a shower or a bath, pat the wound dry with a clean towel. Do not rub the wound. Do not do any activities that will make you sweat a lot until the skin glue has fallen off. Do not apply liquid, cream, or ointment medicine to your wound while the skin glue is still on. If a bandage is placed over the wound, do not put tape right on top of the skin glue. Do not pick at the glue. The skin glue usually stays on for 5?10 days. Then, it falls off the skin. Follow these instructions at home: Medicines Take [id number] and prescription medicines only as told by your doctor. If you were prescribed an antibiotic medicine, take or apply it as told by your doctor. Do not stopusing it even if you start to feel better. Managing pain and swelling If told, put ice on the injured area. To do this: Put ice in a plastic bag. Place a towel between your skin and the bag. Leave the ice on for 20 minutes, 2?3 times a day. Take off the ice if your skin turns bright red. This is very important. If you cannot feel pain, heat, or cold, you have a greater risk of damage to the area. Raise the injured area above the level of your heart while you are sitting or lying down. General instructions Avoid any activity that could make your wound reopen. Check your wound every day for signs of infection. Check for: More redness, swelling, or pain. Fluid or blood. Warmth. Pus or a bad smell. Keep all follow-up visits. Contact a doctor if: You got a tetanus shot and you have any of these problems where the needle went in: Swelling. Very bad pain. Redness. Bleeding. A wound that was closed breaks open. You have a fever. You have any of these signs of infection in your wound: More redness, swelling, or pain. Fluid or blood. Warmth. Pus or a bad smell. You see something coming out of the wound, such as wood or glass. Medicine does not make your pain go away. You notice a change in the color of your skin near your wound. You need to change the bandage often. You have a new rash. You lose feeling (have numbness) around the wound. Get help right away if: You have very bad swelling around the wound. Your pain suddenly gets worse and is very bad. You have painful lumps near the wound or on skin anywhere on your body. You have a red streak going away from your wound. The wound is on your hand or foot, and: You cannot move a finger or toe. Your fingers or toes look pale or bluish. Summary A laceration is a cut that may go through all layers of the skin. The cut may also go into the tissue right under the skin. Some cuts heal on their own. Others need to be closed with stitches, stella, skin adhesive strips,or skin glue. Follow your doctor's instructions for caring for your cut. Proper care of a cut lowers the risk of infection, helps the cut heal better, and may prevent scarring. This information is not intended to replace advice given to you by your health care provider. Make sure you discuss any questions you have with your health care provider. Document Released: 2009 Document Revised: 09/25/2021 Document Reviewed: 09/25/2021 Elsevier Patient Education ? 2022 [employer] documented in this encounter Plan of Treatment Not on file documented as of this encounter Procedures Procedure Name Priority Date/Time Associated Diagnosis Comments HC SMPL REPAIR SCALP/NECK/AX/GENIT /TRUNK 2.6-7.5CM Routine 03/29/2023 9:23 AM EDT Laceration of left thumb without foreign body without damage to nail, initial encounter OK RESUP NPTERF WND BODY 2.6-7.5 CM Routine 03/29/2023 9:23 AM EDT Laceration of left thumb without foreign body without damage to nail, initial encounter documented in this encounter Results * OK RESUP NPTERF WND BODY 2.6-7.5 CM, HC SMPL REPAIR SCALP/NECK/AX/GENIT/TRUNK 2.6-7.5CM (39:23 AM EDT) Narrative Andre Adame MD - 03/29/2023 9:23 AM EDT Nancy Mccord NP ? 03/29/2023 ??9:16 PM Laceration Repair Performed by: Nancy Mccord NP Authorized by: Nancy Mccord NP ?? Consent: ??Consent obtained: ??Verbal ??Consent given by: ??Patient ??Risks, benefits, and alternatives were discussed: yes ?Risks discussed: ??Infection, pain, poor wound healing, poor cosmetic result, need for additional repair, retained foreign body, vascular damage and nerve damage ??Alternatives discussed: ??No treatment Adams protocol: ??Procedure explained and questions answered to patient or proxy's satisfaction: yes ?Patient identity confirmed: ??Verbally with patient, arm band and hospital-assigned identification number Anesthesia: ??Anesthesia method: ??Local infiltration ??Local anesthetic: ??Lidocaine 1% w/o epi Laceration details: ??Location: ??Finger ??Finger location: ??L thumb ??Length (cm): ??3.5 ??Depth (mm): ??5 Pre-procedure details: ??Preparation: ??Patient was prepped and draped in usual sterile fashion Exploration: ??Limited defect created (wound extended): yes ?Hemostasis achieved with: ??Direct pressure and tourniquet ??Wound exploration: wound explored through full range of motion and entire depth of wound visualized ?Wound extent: areolar tissue violated ?Wound extent: no foreign bodies/material noted, no muscle damage noted, no nerve damage noted and no tendon damage noted ?Contaminated: no ?? Treatment: ??Area cleansed with: ??Povidone-iodine, chlorhexidine and Shur-Clens ??Amount of cleaning: ??Standard ??Irrigation solution: ??Sterile saline ??Irrigation volume: ??150 ??Irrigation method: ??Pressure wash and syringe ??Visualized foreign bodies/material removed: no ?Debridement: ??None ??Undermining: ??None Skin repair: ??Repair method: ??Sutures ??Suture size: ??4-0 ??Suture material: ??Nylon ??Suture technique: ??Simple interrupted ??Number of sutures: ??9 Approximation: ??Approximation: ??Close Repair type: ??Repair type: ??Simple Post-procedure details: ??Dressing: ??Non-adherent dressing and antibiotic ointment ??Procedure completion: ??Tolerated well, no immediate complications Nancy Mccord NP IN CLINIC/BEDSIDE OR DERABLES documented in this encounter Visit Diagnoses Diagnosis Laceration of left thumb without foreign body without damage to nail, initial encounter- Primary documented in this encounter Administered Medications Inactive Administered Medications - up to 3 most recent administrations Medication Order MAR Action Action Date Dose Rate Site lidocaine PF (Xylocaine) 10 mg/mL (1 %) injection 50 mg 50 mg (5 mL), injection, Once, On 03/29/23 at 1220, For 1 dose Given 03/29/2023 12:20 PM EDT 50 mg documented in this encounter Active and Recently Administered Medications Times are shown in EDT. Scheduled Medication Order 03/27/2023 03/28/2023 03/29/2023 lidocaine PF (Xylocaine) 10 mg/mL (1 %) injection 50 mg (COMPLETED) 50 mg (5 mL), injection, Once, On Wed03/29/23 at 1220, For 1 dose 1220 (Given - Provid er: Laura Salcido RN - Comment: given by TREATMENT COUNSELOR) documented in this encounter Care Teams Mold Puller Relationship Specialty Start Date End Date No Pcp, Per Patient [place] PCP - General 03/29/23 documented as of this encounter
--- OUTSIDE RECORDS SUMMARY | 2024-02-25 21:56 | XMS_ITS | Clinical Summary ---
Author Organization [facility] Address [address] [facility] [address] [place] [address] Care Team Providers Care Certified Master Safecracker Name Role Phone No Pcp, Per Patient Primary Care Provider Unavai lable Allergies No known active allergies Medications No known medications Active Problems No known active problems Social History Tobacco Use Types Packs/Day Years Used Date Smoking Tobacco: Never Smokeless Tobacco: Never Tobacco Cessation:Counseling Given: Not Answered Sex and Gender Information Value Date Recorded Sex Assigned at Male 09/29/2021 8:21 PM EST Gender Identity Not on file Sexual Orientation Not on file Job Start Date Occupation Industry Not on file Not on file Not on file Last Filed Vital Signs [...] Mass Index 26.5 03/29/2023 10:21 AM EDT Plan of Treatment Health Maintenance Due Date Last Done Comments HIV Screening 1994 MMR Vaccines (1 of 1 - Stand myron series) 1995 Varicella Vaccines (1 of 2 - 13+ 2-dose series) 2007 Hepatitis C Screening 01/05/2012 Hepatitis B Vaccines (1 of 3 - 19+ 3-dose series) 2013 COVID-19 Vaccine (2022-2 4 season) 2023 Depression Screening 08/02/2023 Influenza Vaccine (#1) 2024 DTaP/Tdap/Td Vaccines (2 - T d or Tdap) 12/28/2028 12/28/2018 HIB Vaccines Aged Out No longer eligi ble based on patient's age to complete this topic HPV Vaccines Aged Out No longer eligi ble based on patient's age to complete this topic Hepatitis A Vaccines Aged Out No long er eligible based on patient's age to complete this topic IPV Vaccines Aged Out No longer eligi ble based on patient's age to complete this topic Meningococcal Vaccine Aged Out No regine salo eligible based on patient's age to complete this topic Pneumococcal Vaccine: Pediat rics (0 to 5 Years) and At-Risk Patients (6 to 64 Years) Aged Out No longer eligi ble based on patient's age to complete this topic Rotavirus Vaccines Aged Out No longer eligible based on patient's age to complete this topic Advance Directives Documents on File Type Date Recorded Patient General Hardware Salesperson Expl anation HIM DEJAN Authorization 08/15/2021 1:51 PM C onversion - RELEASE OF INFORMATION ([place] [facility]) Care Teams Certified Master Safecracker Relationship Specialty Start Date End Date No Pcp, Per Patient JA PCP - General 03/29/23
--- OUTSIDE RECORDS SUMMARY | 2024-02-25 21:56 | XMS_ITS | Encounter Summary ---
Author Organization [email or web address] & [facility] lin Address [address] [place] [address] Care Team Providers Care Campus Administrator Name Role Phone No, Pcp NARROW FABRIC CALENDERER Primary Care Provider Unavailabl e Reason for Visit * Reason Comments Covid-19 Send Out Testing Encounter Details Date Type Department Care Team (Late st Contact Info) Description 08/07/2020 10:10 AM EST Office Visit [facility] Covid - 19 Testing Site [address] [place] [address] Dalia Fonseca, KER[address] [place] [address] Contact w and exposure to oth viral communicable diseases (Primary Dx); Infection due to 2019-nCoV Social History Tobacco Use Types Packs/Day Years [...] this encounter Patient Instructions * Patient Instructions* Evita Caruso - 08/07/2020 10:10 AM EST Seek immediate emergency medical attention if you experience severe or worsening abdominal pain, difficulty swallowing, stiff neck, shortness of breath, coughing or vomiting up blood, chest pain, increased fever, unexplained weight loss, or blood in stool. Follow up with you primary care provider for questions or any new symptoms Seek immediate emergency medical attention if you experience severe or worsening abdominal pain, difficulty swallowing, stiff neck, shortness of breath, coughing or vomiting up blood, chest pain, increased fever, unexplained weight loss, or blood in stool. Follow up with you primary care provider for questions or any new symptoms Positive Test results You were seen for COVID-19 Testing and have tested positive. Follow up with your primary care provider for questions or any new symptoms. According to the Centers for Disease Control (CDC), you can stop self- isolating if you meet the below criteria If you will not have a test to determine if you are still contagious, you can leave home after these three things have happened: o You have had no fever for at least 24 hours (that is 24 hours of no fever without the use medicine that reduces fevers) AND o other symptoms have improved (for example, when your cough or shortness of breath have improved) AND o at least 10 days have passed since your symptoms first appeared documented in this encounter Progress Notes * Evita Caruso - 08/07/2020 10:10 AM EST Self Swab Type: Anterior Nasal documented in this encounter Miscellaneous Notes * Addendum Note - Lorin Hobson NP - 08/07/2020 10:10 AM ESTAddended by: LOIRN HOBSON on: 08/09/2020 09:43 AM Modules accepted: SmartSet documented in this encounter Plan of Treatment Not on file documented as of this encounter Procedures Procedure Name Priority Date/Time Associated Diagnosis Comments SARS-COV-2 RNA, QL NAAT, RT PCR/TMA (COVID-19) Routine 08/07/2020 10:11 AM EST Contact w and exposure to oth viral communicable diseases documented in this encounter Results * (ABNORMAL) SARS-COV-2 RNA, QL, RT PCR (COVID-19) (08/07/2020 10:11 AM EST) Pathologist [facility] SARS-COV-2 RNA, QL NAAT, RT PCR/TMA (COVID-19) DETECTED( A) NOT DETECTED IMN-IMN Comment: A Detected result is considered a positive test result for COVID-19. ??This indicates that RNA from SARS-CoV-2 (formerly 2019-nCoV) was detected, and the patient is infected with the virus and presumed to be contagious. If requested by public health authority, specimen will be sent for additional testing. Please review the Fact Sheets and FDA authorized labeling available for health care providers and patients using the following websites: https://www.[employer].Prescreen/home/Covid-19/HCP/ [facility]/fact-sheet.html https://www.[employer]/home/Covid-19/Patients/ QuestLDT/fact-sheet.html This test has been authorized by the FDA under an Emergency Use Authorization (EUA) for use by authorized laboratories. Due to the current public health emergency, [employer] is receiving a high volume of samples from a wide variety of swabs and media for COVID-19 testing. In order to serve patients during this public health crisis, samples from appropriate clinical sources are being tested. Negative test results derived from specimens received in non-commercially manufactured viral collection and transport media, or in media and sample collection kits not yet authorized by FDA for COVID-19 testing should be cautiously evaluated and the patient potentially subjected to extra precautions such as additional clinical monitoring, including collection of an additional specimen. Methodology: ??Nucleic Acid Amplification Test (NAAT) includes RT-PCR or TMA ?? Additional information about COVID-19 can be found at the [employer] website: www.[employer].[email or web address]/Covid19. 08/07/2020 10:1 1 AM EST 08/08/2020 3:59 AM EST Dalia Fonseca NP MICROBIOLOGY - GENERAL ORDERABLES [facility] [address] [place], [place] [address], [place] [facility] [address], [place] [address] documented in this encounter Visit Diagnoses Diagnosis Contact w and exposure to oth viral communicable diseases- Primary Infection due to 2019-nCoV documented in this encounter Care Teams Campus Administrator Relationship Specialty Start Date End Date No, Pcp, NARROW FABRIC CALENDERER N/A Do not use PCP - General Family Medicine 08/06/20 documented as of this encounter
--- OUTSIDE RECORDS SUMMARY | 2024-02-25 21:56 | XMS_ITS | Encounter Summary ---
Author Organization [facility] Address [address] [facility] [address] [place] [address] Care Team Providers Care Boot And Shoe Laborer Name Role Phone Unavailable Primary Care Provider Unavailabl e Encounter Details Date Type Department Care Team (Latest Contact Info) Description 09/03/2021 4:33 PM EST - 09/03/2021 9:54 PM EST Emergency [facility] Other th Hever Hill MD [address] [place] [address] Pain in left leg; Phlebitis and thrombophlebitis of left peroneal vein Discharge Disposition: Home or self care Social [...] Sign Reading Time Taken Comments Blood Pressure - - Pulse - - Temperature 36.8 ??C (98.3 ??F) 09/03/2021 5:50 PM ES T Respiratory Rate 15 09/03/2021 8:30 PM EST Oxygen Saturation 98% 09/03/2021 9:53 PM EST Inhaled Oxygen Concentration - - Weight 81.6 kg (180 lb) 09/03/2021 5:48 PM EST Height 180.3 cm (5' 11) 09/03/2021 5:48 PM EST Body Mass Index 25.1 09/03/2021 5:48 PM EST documented in this encounter Procedure Notes * Brandon Wray MD - 09/03/2021 4:33 PM ESTAssociated Order(s): ECG 12-LEAD Please click on link to see document documented in this encounter Plan of Treatment Not on file documented as of this encounter Procedures Procedure Name Priority Date/Time Associated Diagnosis Comments HX SST GOLD TUBE TO HOLD Routine 09/03/2021 6:46 PM EST HX .AUTOMATED DIFF Routine 09/03/2021 6: 37 PM EST HX PT Routine 09/03/2021 6:37 PM EST HX COMPREHENSIVE METABOLIC PANEL Routine 09/03/2021 6:37 PM EST HX PTT Routine 09/03/2021 6:37 PM EST HX CBC W/ DIFF Routine 09/03/2021 6:37 PM EST HX GLOMERULAR FILTRATION RATE (ESTIMATED) Routine 09/03/2021 6:37 PM EST US LE VENOUS DUPLEX LEFT Routine 09/03/2021 4:50 PM EST ECG 12-LEAD 09/03/2021 4:33 PM EST documented in this encounter Results * HX SST GOLD TUBE TO HOLD (09/03/2021 6:46 PM EST) [facility] [employer] HX SST TUBE TO HOLD DONE 09/03/2021 6:53 PM EST [facility] 09/03/2021 6:46 PM EST Racheal James MD LAB BLOOD ORDERABLES [facility] * HX GLOMERULAR FILTRATION RATE (ESTIMATED) (09/03/2021 6:37 PM EST) [facility] JENENNIUM HX AFN AMER GLOMERULAR FILTRATION RATE >90 09/03/2021 7:23 PM EST [facility] JEN[facility]UM HX NON-AFN AMER GLOMERULAR FILTRATION RATE >90 09/03/2021 7:23 PM EST [facility] LIENNIUM 09/03/2021 6:37 PM EST Racheal James MD LAB BLOOD ORDERABLES [facility] * HX .AUTOMATED DIFF (09/03/2021 6:37 PM EST) [facility] LIENNIUM HX NEUTROPHILS 73.1 % 09/03/2021 7:04 PM EST [facility] LI[facility] HX LYMPHOCYTES 17.0 % 09/03/2021 7:04 PM EST [facility] HX MONOCYTES 7.4 % 09/03/2021 7:04 PM EST [facility] HX EOSINOPHILS 1.3 % 09/03/2021 7:04 PM EST [facility] LI[facility] HX BASOPHILS 0.8 % 09/03/2021 7:04 PM EST [facility] HX IMMATURE GRANULOCYTES 0.4 0.0 - 2.0 % 09/03/2021 7:04 PM EST [facility] MILLENNIUM HX ABSOLUTE NEUTRO COUNT 5.85 1.48 - 7.95 thous/mm 3 09/03/2021 7:04 PM EST [facility] HX ABSOLUTE LYMPHS COUNT 1.36 0.74 - 5.04 thous/mm 3 09/03/2021 7:04 PM EST [facility] HX ABSOLUTE MONO COUNT 0.59 0.0 - 1.34 thous/mm 3 09/03/2021 7:04 PM EST [facility] HX ABSOLUTE BASO COUNT 0.06 0.0 - 0.22 thous/mm 3 09/03/2021 7:04 PM EST [facility] HX ABSOLUTE EOS COUNT 0.1 0.0 - 0.45 thous/mm 3 09/03/2021 7:04 PM EST [facility] 09/03/2021 6:37 PM EST Racheal James MD LAB BLOOD ORDERABLES [facility] * (ABNORMAL) HX COMPREHENSIVE METABOLIC PANEL (09/03/2021 6:37 PM EST) [facility] HX BUN 14.0 6.0 - 20.0 mg/dL 09/03/2021 7:23 PM EST [facility] HX CREATININE 0.738 0.55 - 1.3 mg/dL 09/03/2021 7:23 PM EST [facility] HX SODIUM LVL 139.0 136.0 - 146.0 mmol/L 09/03/2021 7:23 PM EST [facility] HX POTASSIUM LVL 3.5(L) 3.6 - 5.2 mmol/L 09/03/2021 7:23 PM EST [facility] HX CHLORIDE 105.0 98.0 - 110.0 mmol/L 09/03/2021 7:23 PM EST [facility] HX CO2 28.0 21.0 - 32.0 mmol/L 09/03/2021 7:23 PM EST [facility] HX ANION GAP 6.0 3.0 - 11.0 09/03/2021 7:23 PM EST [facility] HX TOTAL PROTEIN 7.5 6.0 - 8.4 Gm/dL 09/03/2021 7:23 PM EST [facility] HX ALBUMIN LVL 4.2 3.2 - 5.0 Gm/dL 09/03/2021 7:23 PM EST [facility] LIEN[facility] HX CALCIUM LVL 9.6 8.5 - 10.5 mg/dL 09/03/2021 7:23 PM EST [facility] LIEN[facility] HX GLUCOSE LVL 120.0(H) 70.0 - 110.0 mg/dL 09/03/2021 7:23 PM EST [facility] LEM[facility] HX BILIRUBIN TOTAL 0.9 0.2 - 1.2 mg/dL 09/03/2021 7:23 PM EST [facility] HX ALKALINE PHOSPHATASE 66.0 30.0 - 117.0 Units/L 09/03/2021 7:23 PM EST [facility] LIENNIUM HX AST 14.0 6.0 - 40.0 Units/L 09/03/2021 7:23 PM EST [facility]- [facility]ANN LEMONIUM HX ALT 23.0 6.0 - 55.0 Units/L 09/03/2021 7:23 PM EST [facility] MAR[facility]ANN LEMONIUM 09/03/2021 6:37 PM EST Racheal James MD LAB BLOOD ORDERABLES [facility] LEMONIUM * (ABNORMAL) HX CBC W/ DIFF (09/03/2021 6:37 PM EST) [facility] LIENNIUM HX WBC 8.0 4.0 - 11.0 thous/mm 3 09/03/2021 7:04 PM EST [facility] LIEN[facility] HX RBC 5.23 4.2 - 5.9 Mil/mm3 09/03/2021 7:04 PM EST [facility] LIENNIUM HX HGB 15.9 13.0 - 17.5 Gm/dL 09/03/2021 7:04 PM EST [facility] LIENNIUM HX HCT 44.6 39.0 - 53.0 % 09/03/2021 7:04 PM EST [facility] MILL[facility]UM HX MCV 85.3 80.0 - 100.0 fL 09/03/2021 7:04 PM EST [facility] HX MCH 30.4 26.0 - 34.0 pGm 09/03/2021 7:04 PM EST [facility]ILL[facility] HX MCHC 35.7 31.0 - 37.0 Gm/dL 09/03/2021 7:04 PM EST [facility] HX PLATELET 256.0 150.0 - 400.0 thous/mm 3 09/03/2021 7:04 PM EST [facility]ILL[facility] HX RDW-SD 34.7(L) 35.0 - 51.0 fL 09/03/2021 7:04 PM EST [facility] MILL[facility] HX RDW-CV 11.3(L) 11.5 - 14.5 % 09/03/2021 7:04 PM EST [facility] HX MPV 11.1 9.4 - 12.4 fL 09/03/2021 7:04 PM EST [facility] HX NRBC PERCENT 0.0 % 09/03/2021 7:04 PM EST [facility] HX ABSOLUTE NRBC COUNT 0.0 thous/mm 3 09/03/2021 7:04 PM EST [facility] MILL[facility] HX DIFFERENTIAL ? No 09/03/2021 7:04 PM EST [facility] 09/03/2021 6:37 PM EST Racheal James MD LAB BLOOD ORDERABLES [facility] * HX PTT (09/03/2021 6:37 PM EST) [facility] LEMONIUM HX APTT 26.0 23.0 - 32.0 sec 09/03/2021 7:31 PM EST [facility] 09/03/2021 6:37 PM EST Racheal James MD LAB BLOOD ORDERABLES [facility] MARIANN MCMILLAN * HX PT (09/03/2021 6:37 PM EST) [facility] HX PT 11.1 9.3 - 11.6 sec 09/03/2021 7:31 PM EST [facility] HX INR 1.0 09/03/2021 7:31 PM EST [facility] MMCILLAN 09/03/2021 6:37 PM EST Racheal James MD LAB BLOOD ORDERABLES Performing Organization Address [facility]/ZIP Co de Phone Number [facility] * US LE Venous Duplex Left (09/03/2021 4:50 PM EST) Anatomical Region Laterality Modality Ultrasound 09/03/2021 4:50 PM EST Narrative 09/03/2021 4:58 PM EST Procedure: US LE Venous Duplex Left ??09/03/2021 4:50 PM Indications: LEFT LEG PAIN, REDNESS, SWELLING; SYMPTOMS OF DVT. Comparison: None Duplex Doppler ultrasound of the left common and superficial femoral, popliteal, calf veins and proximal deep femoral and greater saphenous veins was attempted. Obrien scale imaging with and without compression, spectral waveform analysis with and without augmentation, and color flow Doppler were employed. Examination of the left common femoral, superficial femoral and popliteal veins demonstrates normal compressibility without evidence of intraluminal thrombus. Doppler waveforms demonstrate normal flow and augmentation. ?? However, examination of the peroneal veins demonstrates intraluminal thrombus. IMPRESSION: No evidence of deep venous thrombosis in the upper leg. Thrombophlebitis of the peroneal veins Ashia Be MD 09/03/2021 4:58 PM Procedure Note Brad Be MD - 11/01/2021 Procedure: US LE Venous Duplex Left 09/03/2021 4:50 PM Indications: LEFT LEG PAIN, REDNESS, SWELLING; SYMPTOMS OF DVT. Comparison: None Duplex Doppler ultrasound of the left common and superficial femoral,popliteal, calf veins and proximal deep femoral and greater saphenous veins wasattempted. Obrien scale imaging with and without compression, spectral waveformanalysis with and without augmentation, and color flow Doppler were employed. Examination of the left common femoral, superficial femoral and poplitealveins demonstrates normal compressibility without evidence of intraluminalthrombus. Doppler waveforms demonstrate normal flow and augmentation. However, examination of the peroneal veins demonstrates intraluminalthrombus. IMPRESSION: No evidence of deep venous thrombosis in the upper leg. Thrombophlebitis of the peroneal veins Ashia Be MD 09/03/2021 4:58 PM Jose Heard MD IMG US PROCEDURES * ECG 12-LEAD (09/03/2021 4:33 PM EST) Narrative Procedure Note Brandon Wray MD - 09/03/2021 4:33 PM EST Please click on link to see document Brandon Wray MD ECG ORDERABLES documented in this encounter Visit Diagnoses Diagnosis Pain in left leg Phlebitis and thrombophlebitis of left peroneal vein ([facility]) ([facility]) documented in this encounter
--- OUTSIDE RECORDS SUMMARY | 2024-02-25 21:56 | XMS_ITS | Clinical Summary ---
Author Organization [facility] [employer] [facility] lin Address [address] [facility] [place] [address] Care Team Providers Care Chapter Relations Administrator Name Role Phone No, Pcp HOME ORGANIZER Primary Care Provider Unavailabl e Social History Tobacco Use Types Packs/Day Years Used Date Smoking Tobacco: Never Assessed Sex and Gender Information Value Date Recorded Sex Assigned at Not on file Gender Identity Not on file Sexual Orientation Not on file Plan of Treatment Health Maintenance Due Date Last Done Comments Depression: Screening Annual ly using PHQ9 in Adugni38 yrs orabove (or HM Modifier)([facility]) 01/05/2012 Hepatitis C Virus Infection in Adolescents and Adults: Screening (or Modifier) ([facility]) 01/05/2012 SDWI Screening Reminder: Beth yumikollramin for all adults ([facility]) 01/05/2012 Tobacco Smoking Cessation: i n Adults excluding Women: Behavioral and Pharmacotherapy Interventions ([facility]) 01/05/2012 DTaP/Tdap/Td Vaccines ([facility]) (1 - Tdap) 2013 Lipid Screening: Once for Me n aged 20 to 35 yrs ([facility]) 2014 COVID-19 Vaccine Screening: Initial Series and Booster Status ([facility]) (2022-24 season) 2023 Flu Vaccination: Yearly for ages 18mos through 64 years (or Modifier)([facility]) 03/02/2024 Zoster/Shingles Vaccine Seri es Screening: Adults aged 18+ yrs (or HM Modifiers)([facility]) (1 of 2) 01/05/2044 Pneumococcal Vaccination Scr eening: Pts 0-19 & 19-64 yrs of age ([facility]) Aged Out No longer eligible based on patient's age to complete this topic Medical Devices Not on file Care Teams Chapter Relations Administrator Relationship Specialty Start Date End Date No, Pcp, HOME ORGANIZER N/A Do not use PCP - General Family Medicine 08/06/20
--- OUTSIDE RECORDS SUMMARY | 2024-02-25 21:56 | XMS_ITS | Encounter Summary ---
Author Organization [facility] Address [address] [facility] [address] [place] [address] Care Team Providers Care Manager Regional Name Role Phone No Pcp, Per Patient Primary Care Provider Fercho bills Encounter Details Date Type Department Care Team (Latest Contact Info) Description 03/29/2023 Travel Social History Tobacco Use Types Packs/Day Years Used Date Smoking Tobacco: Never Smokeless Tobacco: Never Sex and Gender Information Value Date Recorded Sex Assigned at Male 09/29/2021 8:21 PM EST Gender Identity Not on file Sexual Orientation Not on file Job Start Date Occupation Industry Not on file Not on file Not on file documented as of this encounter Plan of Treatment Not on file documented as of this encounter Visit Diagnoses Not on filedocumented in this encounter Care Teams Manager Regional Relationship Specialty Start Date End Date No Pcp, Per Patient JA PCP - General 03/29/23 documented as of this encounter
--- OUTSIDE RECORDS SUMMARY | 2024-02-25 21:56 | XMS_ITS | Encounter Summary ---
Author Organization [employer] & [facility] lin Address [address] [facility] [address] Care Team Providers Care Ripsawyer Name Role Phone No, Pcp TRAILER CHIEF Primary Care Provider Unavailabl e Reason for Visit * Reason Comments Poc Onsite Covid19 Testing Encounter Details Date Type Department Care Team ([facility] Contact Info) Description 06/28/2021 11:35 AM EST Office Visit [facility] - [address] [facility] [address] Covid - 19 Testing Site [address] [place] [address] Vargas Davis NP [address] [place] [id number] Contact with and (suspected) exposure to covid-19 [...] this encounter Patient Instructions * Patient Instructions* Catrachita Ken RN - 06/28/2021 11:35 AM EST Patient was reached and results were [...] your hands with an alcohol- based hand solar photovoltaic electrician that contains at least 60% alcohol, covering [...] good ventilation during use of the product. [facility] COVID19 Fact Sheet You are being given [...] in the designated wait area. ??? The [facility] provider will be able to perform other diagnostic tests (e.g., rapid flu or rapid strep) at the [facility] for a symptomatic patient with a negative COVID-19 test result and can help answer questions about how to best manage symptoms and quarantine for a patient with a positive COVID- 19 result. Know about COVID-19 COVID-19 is caused by the SARS-CoV-2 virus. COVID- 19 can cause mild to severe respiratory illness,was first identified in [facility], and has now spread globally, including in [...] is important to follow CDC guidance at (https://www.cdc.gov/coronavirus/2019-ncov/qvuxkqi-fxwdwdn-pjmz/prevent ion.html), including but not limited to frequent [...] Clean your hands with an alcohol-based hand solar photovoltaic electrician that contains at least 60% alcohol if [...] Clean your hands with an alcohol-based hand solar photovoltaic electrician that contains at least 60% alcohol if [...] When will I receive my test results? [employer] allows you to view your test results, your medical records and more. You will receive a [employer] activation email at the conclusion of your COVID19 visit. Upon receipt, you will need to createa user name and password by inputting basic patient demographics including date of and a response to a security question. If you have any questions and/or concerns regarding the [employer] process, you may email [email or web address] Our Notice of Privacy Practices can be found here: [email or web address] If you have any questions, please contact us at . Where can I go for updates and more information? The most up-to-date information on is available at the CDC General webpage: https://www.cdc.gov/COVID19 In addition, please also contact your healthcare provider with any questions/concerns. CDC Information Updated: December 13, 2019 documented in this encounter Progress Notes * Catrachita Ken RN - 06/28/2021 11:35 AM EST [facility] Department of Health notified of results per regulations documented in this encounter Plan of Treatment Not on file documented as of this encounter Procedures Procedure Name Priority Date/Time Associated Diagnosis Comments LUMIRADX SARS-COV-2 RAPID RESULT ANTIGEN TEST Routine 06/28/2021 11:35 AM EST Contact with and (suspected) exposure to covid-19 documented in this encounter Results * LumiraDX SARS-COV-2 Rapid Result Antigen Test (06/28/2021 11:35 AM EST) LumiraDX SARS-COV-2 Rapid Result Antigen Test Negative Negative, Invalid [employer]ANNER [id number] INTERNAL CONTROLS VALID Yes--Test working appropriately [facility] [id number] Expiration Date 10/01/2021 [facility] [id number] Lot Number [id number] BETTY [id number] Test Brand Name_Covid-19 Lumiradx Sars-Cov-2 AG Test JENNIFERBANNER [id number] Other 06/28/2021 11:3 5 AM EST Vargas Davis NP POINT OF C ARE TEST ORDERABLES Performing Organization Address City/State/[facility] Co de Phone Number BETTY [phone] [address] [place] [address], documented in this encounter Visit Diagnoses Diagnosis Contact with and (suspected) exposure to covid-19- Primary Encounter for observation for suspected exposure to other biological agents ruled out documented in this encounter Care Teams Ripsawyer Relationship Specialty Start Date End Date No, Pcp, TRAILER CHIEF N/A Do not use PCP - General Family Medicine 08/06/20 documented as of this encounter"
--- OUTSIDE RECORDS SUMMARY | 2024-02-25 21:56 | XMS_ITS | Clinical Summary ---
Author Organization [facility] Address [address] [place] [id number] Care Team Providers Care Mobile Heavy Equipment Mechanic Name Role Phone Steven Fernandez MD Primary Care Provider [phone]- [phone] Allergies Active Allergy Reactions Criticality Noted Date [...] Mass Index 21.62 01/05/2015 1:46 AM EDT Plan of Treatment Not on file Insurance Payer Benefit Plan / Group Subscriber ID Effective Dates Phone Address Type AETNA AETNA HMO [id number] 2010-Present [address] [place] [address] HMO Care Teams Mobile Heavy Equipment Mechanic Relationship Specialty Start Date End Date Steven Fernandez MD [address] [place] [id number] PCP - General 6/6/15
--- OUTSIDE RECORDS SUMMARY | 2024-02-25 21:56 | XMS_ITS | Encounter Summary ---
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 Role Phone Unavailable Primary Care Provider Unavailabl e Encounter Details Date Type Department Care Team (Late st Contact Info) Description 09/12/2021 1:51 PM EST - 09/12/2021 8:26 PM EST Emergency [facility] Edward Gomez MD [address] [place] [address] Palpitations; Other chest pain; Chest pain, unspecified; Anxiety disorder, unspecified Discharge Disposition: Home or self care Social [...] - Pulse - - Temperature 36.8 ??C (98.2 ??F) 09/12/2021 1:59 PM ES T Respiratory Rate 19 09/12/2021 8:02 PM EST Oxygen Saturation 99% 09/12/2021 8:02 PM EST Inhaled Oxygen Concentration - - Weight 81.6 kg (179 lb 14.3 oz) 09/12/2021 1:54 PM EST Height 180 cm (5' 10.87) 09/12/2021 1:54 PM EST Body Mass Index 25.19 09/12/2021 1:54 PM EST documented in this encounter Procedure Notes * Brandon Wray MD - 09/12/2021 1:51 PM ESTAssociated Order(s): ECG 12-LEAD Please click on link to see document documented in this encounter Plan of Treatment Not on file documented as of this encounter Procedures Procedure Name Priority Date/Time Associated Diagnosis Comments HX TROPONIN I Routine 09/12/2021 6:23 PM EST XR CHEST TWO VIEWS Routine 09/12/2021 5: 19 PM EST HX .AUTOMATED DIFF Routine 09/12/2021 2: 46 PM EST HX COMPREHENSIVE METABOLIC PANEL Routine 09/12/2021 2:46 PM EST HX TROPONIN I Routine 09/12/2021 2:46 PM EST HX D-DIMER QUANTITATIVE Routine 09/12/2021 2:46 PM EST HX BLUE TOP TO HOLD Routine 09/12/2021 2 :46 PM EST HX CBC W/ DIFF Routine 09/12/2021 2:46 PM EST HX GLOMERULAR FILTRATION RATE (ESTIMATED) Routine 09/12/2021 2:46 PM EST ECG 12-LEAD 09/12/2021 1:51 PM EST documented in this encounter Results * HX TROPONIN I (09/12/2021 6:23 PM EST) CON[facility]- [email or web address] HX TROPONIN I, HIGH SENSITIVITY 9.0 nGm/L 09/12/2021 6:59 PM EST CONVERSIONS- [facility] [email or web address] 09/12/2021 6:23 PM EST Edward Gomez MD LAB BLOOD ORDERABLES CONVERSIONS-[facility] [email or web address] [facility] * XR Chest Two Views (09/12/2021 5:19 PM EST) Anatomical Region Laterality Modality Radiographic Yaz ging 09/12/2021 5:19 PM EST Narrative 09/12/2021 5:20 PM EST Procedure: XR Chest Two Views ??09/12/2021 5:19 PM Indications: Chest Pain Comparison: None Findings: The lungs are clear. ??There is no evidence of pneumothorax. ??No pleural effusions are present. ?The heart size is normal. ??The mediastinum has normal contours. ??The bones and soft tissues are unremarkable. IMPRESSION: No acute cardio-pulmonary disease. Chas Be MD 09/12/2021 5:20 PM Procedure Note Chas Be MD - 11/01/2021 Procedure: XR Chest Two Views 09/12/2021 5:19 PM Indications: Chest Pain Comparison: None Findings: The lungs are clear. There is no evidence of pneumothorax.No pleural effusions are present. The heart size is normal. Themediastinum has normal contours. The bones and soft tissues are unremarkable. IMPRESSION: No acute cardio-pulmonary disease. Chas Be MD 09/12/2021 5:20 PM Edward Gomez MD IMG XR PROCEDURES * HX GLOMERULAR FILTRATION RATE (ESTIMATED) (09/12/2021 2:46 PM EST) CONVERSIONS- [facility] [email or web address] [facility] HX AFN AMER GLOMERULAR FILTRATION RATE >90 09/12/2021 3:35 PM EST CONVERSIONS- [facility] [email or web address] H[facility] NON-AFN AMER GLOMERULAR FILTRATION RATE >90 09/12/2021 3:35 PM EST CONVERSIONS- [facility] [email or web address] 09/12/2021 2:46 PM EST Julia Edwards MD LAB BLOOD ORDERABLES CONVERSIONS-[facility] [email or web address] [facility] * HX D-DIMER QUANTITATIVE (09/12/2021 2:46 PM EST) [facility] HX D-DIMER QUANT 0.27 mg/L FEU 09/12/2021 4:32 PM EST [facility] 09/12/2021 2:46 PM EST Edward Gomez MD LAB BLOOD ORDERABLES [facility] * HX .AUTOMATED DIFF (09/12/2021 2:46 PM EST) [facility]- [facility] HX NEUTROPHILS 68.2 % 09/12/2021 3:10 PM EST [facility] HX LYMPHOCYTES 20.6 % 09/12/2021 3:10 PM EST [facility]- [facility] HX MONOCYTES 9.2 % 09/12/2021 3:10 PM EST [facility] HX EOSINOPHILS 0.7 % 09/12/2021 3:10 PM EST [facility]- [facility] HX BASOPHILS 0.9 % 09/12/2021 3:10 PM EST [facility] HX IMMATURE GRANULOCYTES 0.4 0.0 - 2.0 % 09/12/2021 3:10 PM EST [facility]- [facility] HX ABSOLUTE NEUTRO COUNT 3.78 1.48 - 7.95 thous/mm 3 09/12/2021 3:10 PM EST CONVERSIONS- [facility] HX ABSOLUTE LYMPHS COUNT 1.14 0.74 - 5.04 thous/mm 3 09/12/2021 3:10 PM EST CONVERSIONS- [facility] HX ABSOLUTE MONO COUNT 0.51 0.0 - 1.34 thous/mm 3 09/12/2021 3:10 PM EST CONVERSIONS- [facility] HX ABSOLUTE BASO COUNT 0.05 0.0 - 0.22 thous/mm 3 09/12/2021 3:10 PM EST CONVERSIONS- [facility] HX ABSOLUTE EOS COUNT 0.04 0.0 - 0.45 thous/mm 3 09/12/2021 3:10 PM EST CONVERSIONS- [facility] 09/12/2021 2:46 PM EST Julia Edwards MD LAB BLOOD ORDERABLES CONVERSION[facility] * (ABNORMAL) HX COMPREHENSIVE METABOLIC PANEL (09/12/2021 2:46 PM EST) CONVERSIONS- [facility] HX BUN 21.0(H) 6.0 - 20.0 mg/dL 09/12/2021 3:35 PM EST CONVERSIONS- [facility] HX CREATININE 0.929 0.55 - 1.3 mg/dL 09/12/2021 3:35 PM EST CONVERSIONS- [facility] HX SODIUM LVL 136.0 136.0 - 146.0 mmol/L 09/12/2021 3:35 PM EST CONVERSIONS- [facility] HX POTASSIUM LVL 4.2 3.6 - 5.2 mmol/L 09/12/2021 3:35 PM EST CONVERSIONS- [facility] HX CHLORIDE 105.0 98.0 - 110.0 mmol/L 09/12/2021 3:35 PM EST CONVERSIONS- [facility] HX CO2 29.0 21.0 - 32.0 mmol/L 09/12/2021 3:35 PM EST CONVERSIONS- [facility] HX ANION GAP 2.0(L) 3.0 - 11.0 09/12/2021 3:35 PM EST [facility]- [facility] HX TOTAL PROTEIN 7.8 6.0 - 8.4 Gm/dL 09/12/2021 3:35 PM EST CONVERSIONS- [facility] HX ALBUMIN LVL 4.2 3.2 - 5.0 Gm/dL 09/12/2021 3:35 PM EST CONVERSIONS- [facility] HX CALCIUM LVL 9.8 8.5 - 10.5 mg/dL 09/12/2021 3:35 PM EST CON[facility]- [facility] HX GLUCOSE LVL 88.0 70.0 - 110.0 mg/dL 09/12/2021 3:35 PM EST CONVERSIONS- [facility] HX BILIRUBIN TOTAL 1.2 0.2 - 1.2 mg/dL 09/12/2021 3:35 PM EST CONVERSIONS- [facility] HX ALKALINE PHOSPHATASE 73.0 30.0 - 117.0 Units/L 09/12/2021 3:35 PM EST CONVERSIONS- [facility] HX AST 12.0 6.0 - 40.0 Units/L 09/12/2021 3:35 PM EST CONVERSIONS- [facility] HX ALT 24.0 6.0 - 55.0 Units/L 09/12/2021 3:35 PM EST CONVERSIONS- [facility] 09/12/2021 2:46 PM EST Julia Edwards MD LAB BLOOD ORDERABLES CON[facility] * HX TROPONIN I (09/12/2021 2:46 PM EST) CONVERSIONS- [facility] HX TROPONIN I, HIGH SENSITIVITY <6 09/12/2021 3:30 PM EST CONVERSIONS- [facility] 09/12/2021 2:46 PM EST Julia Edwards MD LAB BLOOD ORDERABLES [facility] * (ABNORMAL) HX CBC W/ DIFF (09/12/2021 2:46 PM EST) [facility] HX WBC 5.5 4.0 - 11.0 thous/mm 3 09/12/2021 3:10 PM EST [facility] HX RBC 5.54 4.2 - 5.9 Mil/mm3 09/12/2021 3:10 PM EST CON[facility] HX HGB 16.7 13.0 - 17.5 Gm/dL 09/12/2021 3:10 PM EST CONVERSIONS-[facility] HX HCT 46.4 39.0 - 53.0 % 09/12/2021 3:10 PM EST CONVERSIONS-[facility] HX MCV 83.8 80.0 - 100.0 fL 09/12/2021 3:10 PM EST CONVERSIONS-[facility] HX MCH 30.1 26.0 - 34.0 pGm 09/12/2021 3:10 PM EST CONVERSIONS[facility] HX MCHC 36.0 31.0 - 37.0 Gm/dL 09/12/2021 3:10 PM EST CONVERSIONS-[facility] HX PLATELET 277.0 150.0 - 400.0 thous/mm 3 09/12/2021 3:10 PM EST CONVERSIONS-[facility] HX RDW-SD 34.5(L) 35.0 - 51.0 fL 09/12/2021 3:10 PM EST CONVERSIONS-[facility] HX RDW-CV 11.3(L) 11.5 - 14.5 % 09/12/2021 3:10 PM EST CON[facility] HX MPV 10.8 9.4 - 12.4 fL 09/12/2021 3:10 PM EST CONVERSIONS-[facility] HX NRBC PERCENT 0.0 % 09/12/2021 3:10 PM EST CONVERSIONS-[facility] HX ABSOLUTE NRBC COUNT 0.0 thous/mm 3 09/12/2021 3:10 PM EST CONVERSIONS-[facility] HX DIFFERENTIAL ? No 09/12/2021 3:10 PM EST [facility]VERSIONS-[facility] [place] [facility] [email or web address] 09/12/2021 2:46 PM EST Julia Edwards MD LAB BLOOD ORDERABLES CONVERSIONS-[facility] * HX BLUE TOP TO HOLD (09/12/2021 2:46 PM EST) CON[facility] HX BLUE TOP TUBE TO HOLD DONE 09/12/2021 2:50 PM EST CONVERSIONS-C [facility] 09/12/2021 2:46 PM EST Julia Edwards MD LAB BLOOD ORDERABLES Performing Organization Address [facility] Co de Phone Number CONVERSIONS-[facility] * ECG 12-LEAD (09/12/2021 1:51 PM EST) Narrative Procedure Note Brandon Wray MD - 09/12/2021 1:51 PM EST Please click on link to see document Brandon Wray MD ECG ORDERABLES documented in this encounter Visit Diagnoses Diagnosis Palpitations Other chest pain Chest pain, unspecified Anxiety disorder, unspecified documented in this encounter
== END 2024-02-25 21:54 | disposition short-term general hospital (02) ==
LOC: ER 21:55
PROVIDERS: Emergency Provider Emergency Medicine
DX: S81.812A Laceration without foreign body, left lower leg, initial encounter (principal); Z23 Encounter for immunization; V86.56XA Driver of dirt bike or motor/cross bike injured in nontraffic accident, initial encounter
CPT/HCPCS: 90471; 90715; 96361; 96365; 96375; 99285; 73590; J0131; J0690